=== PATIENT | male | born 1970 | race Caucasian/White ===

== ENCOUNTER 2022-03-16 11:52 | Emergency (ER) | payer BC, SELFPAY ==
[2022-03-16 12:02] VITALS: BP 125/68; PULSE 65; TEMP 36.7; O2SAT 96; BMI 31.7
[2022-03-16 12:05] VITALS: BP 125/68; PULSE 61; O2SAT 96
--- NOTE | 2022-03-16 12:13 | CRLHL7_ITS ---
For Patients: As a result of the Century Cures Act, medical imaging exams and procedure reports are released immediately into your electronic medical record. You may view this report before your referring provider. If you have questions, please contact your health care provider. INDICATION: SWELLING, ECCHYMOSIS, TRAUMA COMPARISON: none TECHNIQUE: Richards scale imaging was performed of the scrotum. In addition color Doppler and spectral Doppler analysis was performed of the testes. FINDINGS: The testes demonstrate normal arterial and venous blood flow on color Doppler and spectral Doppler analysis. The testes have uniform echogenicity with no evidence of a suspicious mass or area of inflammation. The right testis measures 4.4 x 2.0 x 2.9 cm in size and the left testis measures 4.1 x 2.1 x 2.8 cm. Small epididymal cysts are noted measuring up to 1.3 cm. There is no evidence of a large hydrocele or varicocele. Diffuse skin thickening noted. IMPRESSION: No evidence of trauma to the testicles. No torsion. Dictated by Diogo Jiménez MD @ 03/16/2022 1:22:05 PM (Electronically Signed)
[2022-03-16] MEDS: HYDROCODONE-ACETAMIN 5-325 MG 1 TAB PO (12:19)
--- NOTE | 2022-03-16 12:42 | ED_ITS ---
HPI - General Adult General Chief complaint: Urogenital Problems, Male Stated complaint: horse riding injuries Time Seen by Provider: 03/16/22 11:56 Source: patient Mode of arrival: ambulatory Limitations: no limitations History of Present Illness HPI narrative: 52-year-old male coming in today complaining of testicular pain. States that he was horseback riding 2 days ago when he lost stirrup. This spoke to his worse and the horse tried to Dangelo him and so he was thrown against the front of the saddle 3 times hitting his groin area. He states that the area has been sore ever since. He describes pain in both testicles radiating up into his lower abdomen. Staying still makes it better. When he stands up he does have increase in discomfort in the testicular area. He has no pain with urination. No blood or discharge from the penis. No difficulties with bowel movements. He also started having low back pain after this incident. Pain is located in lower back radiates to the right into the right buttock. Denies any weakness of the lower extremity. No saddle anesthesia. No loss of bowel or bladder function. He did not fall off the horse. Did not hit his head or lose consciousness. Related Data Previous Rx's Medication Instructions Recorded methylprednisolone 4 mg tablets in See Rx Instructions PO .COMPLEX 03/16/22 a dose pack (Medrol (Geovanny)) #21 ea Allergies Allergy/AdvReac Type Severity Reaction Status Date / Time No Known Drug Allergies Allergy Verified 03/16/22 12:05 Review of Systems Status of ROS: Reports: 10 or more systems reviewed and unremarkable except as noted in History and below PFSH PFS Social History Smoking Status: Never smoker Do you use any of these nicotine containing products: None Second hand tobacco smoke exposure: No How often do you have a drink containing alcohol: never How often do you have six or more drinks on one occasion: Never AUDIT-C Alcohol total score: 0 Non-prescribed substance use: denies use Exam Narrative: Exam Narrative: Overweight, well-developed patient in no acute distress but is uncomfortable when he has to move. Alert and oriented. Answers questions appropriately. Mood and affect are appropriate. Thoughts are goal oriented and rational. No tangential or magical thinking noted. Patient speaks in full sentences without needing to catch his breath. HEENT: Normocephalic atraumatic. Pupils are equally round reactive to light. Extraocular muscles are intact. Conjunctivae are moist without any icterus noted. Abdomen: Soft and nontender, protuberant but nondistended with normal bowel sounds. No guarding or rebound. No masses or organomegaly appreciated. Extremities: Bilateral lower extremities are without edema. Skin: Well perfused. : Patient has bilateral scrotal swelling with ecchymosis covering the entire scrotum radiating up into the lower abdomen and base of the penis. The penis itself appears normal. He has some minimal tenderness with palpation of the testicles bilaterally left greater than the right. He has no inguinal lymphadenopathy. Const: Vital Signs, click to edit/add: Vital Signs - 24 hr 03/16/22 12:02 03/16/22 12:05 03/16/22 13:17 Temperature 98.0 F Pulse Rate [Left P ulse Oximeter] 65 61 53 L Blood Pressure [Ri ght Upper Arm] 125/68 125/68 131/77 Pulse Oximetry 96 96 95 Oxygen Delivery Me thod Room Air Room Air Room Air Course Course Hospital Course: Scrotal ultrasound was done, per tech report was normal. Vital Signs Vital signs: Initial Vital Signs Temperature 98.0 F 03/16/22 12:02 Temperature Source Temporal Artery Scan 03/16/22 12:02 Pulse Rate 65 03/16/22 12:02 Blood Pressure 125/68 03/16/22 12:02 Blood Pressure Mean 87 03/16/22 12:02 Blood Pressure Position Supine 03/16/22 12:02 Pulse Oximetry 96 03/16/22 12:02 Oxygen Delivery Method 03/16/22 12:02 Vital Signs Temperature 98.0 F 03/16/22 12:02 Pulse Rate 65 03/16/22 12:02 Blood Pressure 125/68 03/16/22 12:02 Pulse Oximetry 96 03/16/22 12:02 Oxygen Delivery Method 03/16/22 12:02 Temperature 98.0 F 03/16/22 12:02 Pulse Rate 53 L 03/16/22 13:17 Blood Pressure 131/77 03/16/22 13:17 Pulse Oximetry 95 03/16/22 13:17 Oxygen Delivery Method 03/16/22 13:17 Medical Decision Making MDM Narrative Medical decision making narrative: 52-year-old male with testicular trauma resulting in swelling and ecchymoses. Ultrasound exam reassuring. We discussed symptomatic treatment. He will be sent home with hydrocodone/APAP 325-5 1 tab p.o. q.6 hours p.r.n., 7 tablets. As far as his back pain does appear to have back pain with radiculopathy. Will treat with a Medrol Dosepak. Patient was agreeable with everything we discussed had no other questions. Medical Records Medical records reviewed: Yes I reviewed the patient's medical records Imaging Data Scrotal ultrasound: Attestation: I have reviewed the pertinent imaging results. Radiologist's impression: FINDINGS: The testes demonstrate normal arterial and venous blood flow on color Doppler and spectral Doppler analysis. The testes have uniform echogenicity with no evidence of a suspicious mass or area of inflammation. The right testis measures 4.4 x 2.0 x 2.9 cm in size and the left testis measures 4.1 x 2.1 x 2.8 cm. Small epididymal cysts are noted measuring up to 1.3 cm. There is no evidence of a large hydrocele or varicocele. Diffuse skin thickening noted. IMPRESSION: No evidence of trauma to the testicles. No torsion. Discharge Plan Discharge Clinical Impression: Acute lumbar radiculopathy, Pain in testicle due to trauma Patient Disposition: Home, Self-Care Condition: Stable Prescriptions: New methylprednisolone [Medrol (Geovanny)] 4 mg tablets,dose pack See Rx Instructions PO .COMPLEX Qty: 21 0RF Rx Instructions: orally per package directions Stand Alone Forms: [facility] Info Instructions
[2022-03-16 13:17] VITALS: BP 131/77; PULSE 53; O2SAT 95
[2022-03-16 13:45] VITALS: BP 129/84; PULSE 52; RESP 18; O2SAT 95
== END 2022-03-16 13:59 | disposition home or self-care (01) ==
PROVIDERS: Emergency Provider Family Medicine
DX: N50.812 Left testicular pain (principal); N50.811 Right testicular pain; M54.16 Radiculopathy, lumbar region; Y93.52 Activity, horseback riding
CPT/HCPCS: 76870; 93976; 99284; A9270

== ENCOUNTER 2023-09-10 08:17 | Emergency (ER) | payer BC, SELFPAY ==
[2023-09-10 08:21] VITALS: BP 136/95; PULSE 54; RESP 18; TEMP 37.2; O2SAT 95; BMI 30.4
--- NOTE | 2023-09-10 08:37 | ED_ITS ---
HPI - Wound/Laceration General Time Seen by Provider: 08:37 Date Seen: 09/10/23 Chief Complaint: Laceration/Wound Stated Complaint: finger lac Time Seen by Provider: 09/10/23 08:37 Source: patient and RN notes reviewed Mode of arrival: ambulatory Limitations: no limitations History of Present Illness HPI narrative: This 53-year-old male he injured his right 3rd finger at about midnight last night. He was putting the tractor away, slipped off of it, his finger went into the tractor fan blade. He did bandage it through the night but continues to have bleeding through the bandages. His tetanus is up-to-date in December of 2016. He does note that the fingers on this hand have felt a little numb and tingly. He believes he got a frostbite injury during a outdoor race about 2 weeks ago. He did want to let me know. Reviewed with him at this time, if he did have a frostbite injury, he really needs to protect his fingers. Would have him follow up with his primary care provider if he continues to notice numbness/tingling. It is imperative that he not re-injure these fingers with further cold injury. He is about 8-9 hours from his injury. Did review in up-to-date, given that this is not injury on the lower extremities, he is under 12 hours, can try to repair with out increased risk of infection. Reviewed with patient that we do want to obtain an x-ray though to look for underlying bony pathology. Would cover him with antibiotics if we do see any type of tuft fracture on this finger. Patient tetanus UTD: Yes Related Data Previous Rx's Medication Instructions Recorded cephalexin 500 mg tablet 500 mg PO TID #15 tabs 09/10/23 Allergies Allergy/AdvReac Type Severity Reaction Status Date / Time coconut Allergy Intermediate Hives Verified 09/10/23 08:28 Review of Systems Narrative: As per HPI. PFSH PFSH Social History Smoking Status: Never smoker Do you use any of these nicotine containing products: Smokeless Tobacco Second hand tobacco smoke exposure: No How often do you have a drink containing alcohol: never How often do you have six or more drinks on one occasion: Never AUDIT-C Alcohol total score: 0 Non-prescribed substance use: denies use service: No Exam Const: Vital Signs, click to edit/add: Vital Signs - 24 hr 09/10/23 08:21 Temperature 99 F Pulse Rate [Right Pulse Oximeter] 54 L Respiratory Rate 18 Blood Pressure [Ri ght Upper Arm] 136/95 H Pulse Oximetry 95 Oxygen Delivery Me thod Room Air The fingers and hand or fully functional, bandage was removed from the distal right 3rd finger. Has somewhat of a stellate laceration at the distal end of this finger. It does go into the distal nail, there is no subungual hematoma. Along the medial nail about [address], the nail is torn, likely goes into the underlying nail bed. Reviewed with patient the procedure of totally removing the nail to relocate the underlying nail bed. Alternatively, reviewed with him that I could tack the current nail back into place, stitching through the underlying tissue. He understands that he may end up losing the distal end of this nail as it grows out. He may be left with a ridge or traumatic change within the nail. He and I both have agreed through shared decision making that we will not remove the whole nail. I think this is the most reasonable approach. Of note, all of his fingers looked to have normal coloration, there is no [place] induration, no color changes of his fingers. He does states they just feel a little numb in this hand. Capillary refill is normal. He still does have some bruising along this macerated/stellate distal end of his right 3rd finger. Documenting provider has reviewed patient's vital signs: yes Course Reevaluation(s) Time of Reevaluation #1: 08:53 Reevaluation #1: Just completed digital block of this finger. Used a total of 6 mL of the 1% lidocaine. Will see if this provides sufficient anesthesia. Will x-ray this finger while we await the anesthesia to take hold. Will have the electroneurodiagnostic technician irrigate and clean the finger up. Time of Reevaluation #2: 09:35 Reevaluation #2: Completed repair of this macerated distal finger. Placed 2 stitches through the nail bed to repair the tear. Repaired the other suture lines with a total of 8 simple interrupted sutures. Patient had a total of 10 simple interrupted sutures placed in repair of this distal finger. He tolerated this well, there was good anesthesia. Will have bandage placed and then give him a splint for protection of this finger. Vital Signs Vital signs: Initial Vital Signs Temperature 99 F 09/10/23 08:21 Temperature Source Temporal Artery Scan 09/10/23 08:21 Pulse Rate 54 L 09/10/23 08:21 Pulse Rhythm Regular 09/10/23 08:21 Respiratory Rate 18 09/10/23 08:21 Blood Pressure 136/95 H 09/10/23 08:21 Blood Pressure Mean 108 H 09/10/23 08:21 Blood Pressure Position Sitting 09/10/23 08:21 Pulse Oximetry 95 09/10/23 08:21 Oxygen Delivery Method Room Air 09/10/23 08:21 Vital Signs Temperature 99 F 09/10/23 08:21 Pulse Rate 54 L 09/10/23 08:21 Respiratory Rate 18 09/10/23 08:21 Blood Pressure 136/95 H 09/10/23 08:21 Pulse Oximetry 95 09/10/23 08:21 Oxygen Delivery Method Room Air 09/10/23 08:21 Temperature 99 F 09/10/23 08:21 Pulse Rate 54 L 09/10/23 08:21 Respiratory Rate 18 09/10/23 08:21 Blood Pressure 136/95 H 09/10/23 08:21 Pulse Oximetry 95 09/10/23 08:21 Oxygen Delivery Method Room Air 09/10/23 08:21 Medications Administered Medications: Discontinued Medications Generic Name Dose Route Start Last Admin Trade Name Freq PRN Reason Stop Dose Admin Lidocaine HCl 10 ml 09/10/23 08:42 09/10/23 08:52 Lidocaine 1% Mdv INJECTION 09/10/23 08:43 10 ml ONCE ONE Administration MDM - Wound/Laceration Imaging Data XR right finger: Attestation: I have reviewed the pertinent imaging results. My impression: Did review his films prior to the x-ray reading, believe there is a small tuft fracture. Did share this with the patient as I was suturing him. Radiologist's impression: Patient: REJI MEREDITH Facility:?[facility] Patient ID:?[id number] Site Patient ID:?[id number]. Site :?[id number] Study:?XRay Extremity Right 3RD DIGIT FINGER-09/10/2023 9:10:41 AM Ordering Physician:Brian Bedolla Final Report: Indication: Trauma. Technique: Three views right hand Comparison: None. Findings: Bones: Tiny ossific density adjacent to the tip of the 3rd distal phalanx tuft. No other fracture. Joint spaces: Unremarkable. Soft tissues: Unremarkable. Impression: Minimally displaced tiny fracture of the tip of the 3rd distal phalanx tuft. Dictated by Blayne Moore MD @ 09/10/2023 9:19:28 AM (Electronic Signature) Discharge Plan Discharge Clinical Impression: Open fracture of tuft of distal phalanx of finger Finger laceration Qualifiers: Encounter type: initial encounter Finger: middle finger Damage to nail status: with damage Foreign body presence: without foreign body Laterality: right Qualified Code(s): S61.312A - Laceration without foreign body of right middle finger with damage to nail, initial encounter Patient Disposition: Home, Self-Care Condition: Stable Instructions: Finger Fracture (ED), Finger Laceration (ED) Additional Instructions: May shower and wash hands but otherwise should keep this finger clean and dry until stitches are removed. Make a clinic follow-up for recheck of this wound and assessment for suture removal in about 7-10 days. Use the splint provided for protection. May need to use the splint for anywhere from 2-4 weeks, can wean out of it as your pain decreases. Take antibiotics as prescribed. If there is any concern for infection of this wound, please seek re-evaluation immediately. Use bacitracin and bandages to keep this wound clean and dry when your out in public or working. Activity Level: Activity as Tolerated Prescriptions: New cephalexin 500 mg tablet 500 mg PO TID Qty: 15 0RF Follow Up/Referrals: Provider,Not a Local [Primary Care Provider] - Stand Alone Forms: [facility] Info Instructions
[2023-09-10] MEDS: LIDOCAINE 1% MDV 10 ML INJECTION (08:52)
--- NOTE | 2023-09-10 08:52 | CRLHL7_ITS ---
For Patients: As a result of the Cures Act, medical imaging exams and procedure reports are released immediately into your electronic medical record. You may view this report before your referring provider. If you have questions, please contact your health care provider. Indication: Trauma. Technique: Three views right hand Comparison: None. Findings: Bones: Tiny ossific density adjacent to the tip of the 3rd distal phalanx tuft. No other fracture. Joint spaces: Unremarkable. Soft tissues: Unremarkable. Impression: Minimally displaced tiny fracture of the tip of the 3rd distal phalanx tuft. Dictated by Blayne Mooer MD @ 09/10/2023 9:19:28 AM (Electronically Signed)
--- NOTE | 2023-09-10 09:20 | ED.NURSE ---
Tech irrigated pt finger with saline.
--- NOTE | 2023-09-10 09:45 | ED.NURSE ---
Applied bandage and bacitracin to wound, splint applied.
== END 2023-09-10 10:00 | disposition home or self-care (01) ==
PROVIDERS: Emergency Provider Family Medicine
DX: S62.632B Displaced fracture of distal phalanx of right middle finger, initial encounter for open fracture (principal); W22.8XXA Striking against or struck by other objects, initial encounter
CPT/HCPCS: 12001; 73140; 99282; 99283